=== PATIENT | male | born 1980 | race Caucasian/White ===

== ENCOUNTER → 2017-10-31 12:46 | Outpatient (CLI) | payer OTHER, SELFPAY ==
--- NOTE | 2017-10-31 12:55 | XR_ITS ---
XR ribs LT min 3V w CXR1V HISTORY: ITS.REASON: CHEST WALL PAIN ORDERING PHYSICIAN: Mendy Strange PATIENT AGE: 37 years FINDINGS: There is a mildly displaced fracture involving the age aspect of the left sixth rib. No other fractures apparent. No evidence of pneumothorax. IMPRESSION: Mildly displaced fracture involves injury aspect of the left sixth rib
--- NOTE | 2017-10-31 12:55 | XR_ITS ---
XR chest 2V HISTORY: ITS.REASON: CHEST WALL PAIN ORDERING PHYSICIAN: Mendy Strange PATIENT AGE: 37 years COMPARISON: FINDINGS: The cardiomediastinal silhouette and pulmonary vascularity are within normal limits. The lungs are clear without infiltrates, suspicious nodules, or pleural effusions. There is a minimally displaced fracture involving the anterior aspect of left sixth rib. IMPRESSION: Left 6 rib fracture otherwise negative chest.
== END ==
PROVIDERS: PCP Family Medicine; Visit Provider Nurse Practitioner Family
DX: R07.89 Other chest pain (principal)
CPT/HCPCS: 71046; 71101

== ENCOUNTER → 2017-11-25 10:17 | Outpatient (CLI) | payer OTHER, SELFPAY ==
--- NOTE | 2017-11-25 10:22 | XR_ITS ---
XR ribs LT min 3V w CXR1V HISTORY: Rib pain, follow-up fracture anterior ribs ITS.REASON: HEALING OF LEFT RIB FX ORDERING PHYSICIAN: MADELINE Brooks PATIENT AGE: 37 years Comparison: 10/31/2017 FINDINGS: A frontal view of the chest shows no acute finding. Multiple views of the Left ribs were obtained. Previously noted left sixth rib fracture is once again identified with some callus formation at fracture site. Fracture is nondisplaced. IMPRESSION: Healing left sixth rib fracture
== END ==
PROVIDERS: PCP Family Medicine; Visit Provider Physician Assistant
DX: S22.32XD Fracture of one rib, left side, subsequent encounter for fracture with routine healing (principal)
CPT/HCPCS: 71101

== ENCOUNTER → 2017-12-09 10:03 | Outpatient (CLI) | payer OTHER, SELFPAY ==
--- NOTE | 2017-12-09 10:12 | XR_ITS ---
XR ribs LT min 3V w CXR1V HISTORY: Follow-up rib fractures ITS.REASON: HEALING OF LEFT RIB FX ORDERING PHYSICIAN: MADELINE Brooks PATIENT AGE: 37 years Comparison: 10/31/2017 FINDINGS: Frontal view of the chest shows no acute finding. There is no evidence of pneumothorax.. Previously noted left sixth rib fractures less apparent consistent with healing. No new fractures are evident. IMPRESSION: Healing left sixth rib fracture
== END ==
PROVIDERS: PCP Nurse Practitioner; Visit Provider Physician Assistant
DX: S22.32XD Fracture of one rib, left side, subsequent encounter for fracture with routine healing (principal)
CPT/HCPCS: 71101

== ENCOUNTER → 2019-03-07 06:22 | Outpatient (CLI) | payer OTHER, SELFPAY ==
--- NOTE | 2019-03-07 | CA_ITS ---
APPROVED REPORT Exam: Exercise Treadmill Technologist: Mariela Ruiz, Ht: 5 ft 7 in Wt: 175 lbs BSA: 1.91 m2 HR: 56 bpm BP: 120/74 mmHg Rhythm: sinus bradycardia Indications: Chest pain Medical History Medications: Omeprazole,,,,, Celexa,,,,, ClonAZapam,,,,, Allergies: No known drug allergies Cardiac Risk Factors: Smoking Stress Test Details Test: Scotty HR Resting HR: 66 bpm Max Heart Rate (APMHR): 180 bpm Max HR Achieved: 160 bpm Target HR (85% APMHR): 153 bpm % of APMHR: 88 Recovery HR: 90 bpm BP Resting BP: 120/74 mmHg Max BP: 190/90 mmHg Recovery BP: 136.0/86.0 mmHg BP response to stress: Normal blood pressure response to stress. ECG Clinical Reason for Termination: Dyspnea and leg fatigue Exercise duration: 11:00 min Highest Stage Achieved: Exercise capacity: 12.8 METs Stress ECG Conclusion Max HR - 160: Max B/P - 190/90: Mets - 12.8 : % of PM -89%. Symptoms - No chest pain. occasional PVC Normal ST response to exercise. Normal GXT Myoview images reported separately. Test Summary REST . . . . . . . Sitting REST . . . . . . . Standing REST 17:33 0.0 0.0 66 . 120/ 74 . . Stage 1 01:00 10.0 1.7 86 . . . . Stage 1 02:00 10.0 1.7 91 . . . . Stage 1 03:00 10.0 1.7 96 . 120/ 80 . . Stage 2 01:00 12.0 2.5 99 . . . . Stage 2 02:00 12.0 2.5 104 . . . . Stage 2 03:00 12.0 2.5 108 . 144/ 85 . . Stage 3 01:00 14.0 3.4 115 . . . . Stage 3 02:00 14.0 3.4 121 . . . . Stage 3 03:00 14.0 3.4 125 . 152/ 84 . . Stage 4 01:00 16.0 4.2 151 . . . . Stage 4 . . . . . . . Myoview Injected Stage 4 02:00 16.0 4.2 160 . . . Stop exercise at 11:00 RECOVERY 01:00 0.0 0.0 128 . 190/ 90 . . RECOVERY 02:00 0.0 0.0 106 . 190/ 90 . . RECOVERY 03:00 0.0 0.0 96 . 173/ 86 . . RECOVERY 04:00 0.0 0.0 89 . 173/ 86 . . RECOVERY 05:00 0.0 0.0 91 . 136/ 86 . . RECOVERY 05:23 0.0 0.0 86 . 136/ 86 . . Electronically signed by : Fahad Townsend, 03/08/2019 13:02:59
--- NOTE | 2019-03-07 06:26 | NM_ITS ---
APPROVED REPORT Exam: Nuclear Stress Test Indication: Chest pain, Tobacco use Patient Location: Outpatient Stress Tech: Mariela Ruiz ID Tech:Nina Ace, SHAQUILLET, RT (R)(N) Ht: 5 ft 7 in Wt: 175 lbs BSA: 1.91 m2 HR: 56 bpm BP: 120/74 mmHg BMI: 27.4 History: Chest pain, Tobacco use Procedure: Patient exercised on Scotty protocol 11 minutes and sec, resting heart rate 56 bpm, resting blood pressure 120/74 mmHg, with exercise maximum heart rate achived was 160 bpm which is 89 % of the maximum predicted heart rate and blood pressure was 190/90. bpm. Test was stopped due to max effort. Patient denied any complaint of chest pain. Patient has Good exercise capacity, achieved 12.8 METs of workload on treadmill, the blood pressure response to exercise was Adequate.. Electrocardiogram Resting electric cardiogram showed sinus rhythm, with exercise less than 1.[address] segment depression noted from the baseline EKG. The EKG portion of the exercise Myoview is negative for ischemia. Cardiac Stress and Resting SPECT Images: Cardiac Stress and Resting SPECT images were obtained using technetium 99m Myoview 32 mCi stress and 10 mCi at rest. Gated SPECT with analysis of segmental wall motion and calculation of the ejection fraction also done. Cardiac stress and resting SPECT images show uniform myocardial activity without segmental perfusion abnormality, computer derived ejection fraction is 64% with no regional wall motion abnormality, right ventricle is normal size and contractility. Conclusion: 1. The EKG portion of the exercise Myoview is negative for ischemia, she has good exercise capacity achieved 12.8 mets of workload on treadmill, the blood pressure response to exercise was adequate. 2. No scintigraphic evidence of reversible ischemia seen at this level of exercise, computer derived ejection fraction is 64% with no regional wall motion abnormality, right ventricle is normal size and contractility. 3. Normal exercise Myoview study. Electronically signed by : John Ash, 03/15/2019 16:54:39
--- NOTE | 2019-03-07 07:04 | HMH.ITSHM ---
Current Home Medications as stated by this patient Giovanni Muniz or b2b sales representative. []CELEXA CLONAZAPAM OMEPRAZOLE
== END ==
PROVIDERS: PCP Family Medicine; Visit Provider Family Medicine
DX: R07.89 Other chest pain (principal)
CPT/HCPCS: 78452; 93017; A9502

== ENCOUNTER → 2020-10-03 13:00 | Outpatient (CLI) | payer OTHER, SELFPAY ==
--- NOTE | 2020-10-03 13:08 | MR_ITS ---
PROCEDURE: MR HEAD/BRAIN WO CON CLINICAL INDICATION: eval for MBA [employer] abnormalities Pt states hx of migraines with no injury or trauma. COMPARISON: No exams were available for comparison TECHNIQUE: Routine multiplanar multi echo sequences are performed without gadolinium enhancement. FINDINGS: No midline shift, mass effect, intracranial hemorrhage, hydrocephalus, or acute infarction. The cerebellopontine angle, cerebellum, and brainstem have an unremarkable appearance. There are a few sparse T2 white matter hyperintensities noted which are nonspecific. Coarsened callosum, and craniocervical junction have an unremarkable appearance. Posterior to the right optic canal, there is an area of signal void measuring 5 mm. This is best depicted on the axial T1 and T2 weighted images. This could represent a small aneurysm or an extension of the sphenoid sinus. MR angiography suggested for further evaluation. No mastoid effusion or sinus air-fluid level. IMPRESSION: 1. 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 MRA suggested for further evaluation. 2. Non-specific minimal T2 white matter hyperintensities. Small ischemic gliotic foci, migraine headache, or demyelinating process is included in the differential diagnosis Dictated by: Yohannes Candelario MD 10/05/2020 10:11 Yohannes Candelario MD in [facility] 10/05/2020 10:11
== END ==
LOC: RAD 13:02
PROVIDERS: PCP Physician Assistant; Visit Provider Specialist
DX: R51.9 Headache, unspecified (principal); G89.29 Other chronic pain
CPT/HCPCS: 70551

== ENCOUNTER → 2020-10-08 09:37 | Outpatient (CLI) | payer OTHER, SELFPAY ==
--- NOTE | 2020-10-08 09:43 | MR_ITS ---
PROCEDURE: MR ANGIO HEAD WO CON CLINICAL INDICATION: abnormal MRI, possible aneurysm COMPARISON: MR MR HEAD/BRAIN WO CON from 10/03/2020 TECHNIQUE: Routine multiplanar multi echo sequences are performed without gadolinium enhancement. FINDINGS: Bilateral internal carotid arteries demonstrate normal flow related signal without evidence of aneurysm. The internal carotid arteries demonstrate normal anterior and mediastinal [place] arteries. The focal flow void noted in the region of the right ophthalmic artery on the prior MRI demonstrates no evidence of aneurysm. The origin of the right ophthalmic artery appears unremarkable. Bilateral middle cerebral arteries demonstrate type trifurcation without evidence of focal stenosis or occlusion. The intracranial internal carotid arteries are unremarkable. The basilar trunk the minutes as paired superior cerebellar and posterior cerebral arteries. No evidence of focal stenosis or aneurysm. The visualized venous sinuses are unremarkable. IMPRESSION: No evidence of aneurysm or stenosis. Unremarkable MR angiogram of the head. Dictated by: Halima Mcguire 10/08/2020 14:41 Halima Mcguire in [facility] 10/08/2020 14:41
== END ==
LOC: RAD 09:38
PROVIDERS: PCP Physician Assistant; Visit Provider Specialist
DX: R51.9 Headache, unspecified (principal); R93.0 Abnormal findings on diagnostic imaging of skull and head, not elsewhere classified
CPT/HCPCS: 70544

== ENCOUNTER → 2020-10-22 14:32 | Outpatient (CLI) | payer OTHER, SELFPAY ==
--- NOTE | 2020-10-22 14:37 | CT_ITS ---
PROCEDURE: CT ABDOMEN PELVIS WO CON CLINICAL INDICATION: H/O URINARY CALCULI COMPARISON: No exams were available for comparison TECHNIQUE: Axial images obtained with sagittal and coronal reformats. All CT scans at the facility use one or more dose reduction, viz: automated exposure control, ma/kV adjustment per patient size (including targeted exams where dose is matched to indication, i.e. head), or iterative reconstruction technique. FINDINGS: LOWER THORAX: No acute finding ABDOMEN & PELVIS: A 6 mm hypodensity is present in the left hepatic lobe possibly due to small hepatic cyst. The spleen, adrenal glands, pancreas, and gallbladder have an unremarkable appearance. There is moderate right hydronephrosis and hydroureter secondary to a 9 x 5 mm stone in the distal right ureter 1 cm proximal to the ureterovesical junction. There is at least 1 other small stone at this region proximal to the larger stone. The smaller stone measures approximately 4 mm. There is also a small 3 mm stone at the junction of the mid distal right ureter 5 cm proximal to the area of obstruction. Punctate calculi are present in the right kidney in the upper and lower pole. There is a 5 mm stone in the upper pole of the left kidney and smaller stones in the lower pole of the left kidney. No evidence of appendicitis. No intestinal obstruction or free air. There is mild thickening of the urinary bladder wall nonspecific. No acute bony findings. Scattered small nodes are present in the right lower quadrant and mesenteries. IMPRESSION: 1. Moderate right hydronephrosis and hydroureter secondary to a 9 x 5 mm stone in the distal right ureter with other smaller stones proximal to that stone in the ureter. 2. Bilateral nephrolithiasis. 3. Other nonacute findings as described above Dictated by: Yohannes Candelario MD 10/22/2020 15:21 Yohannes Candelario MD in [facility] 10/22/2020 15:21
== END ==
LOC: RAD 14:33
PROVIDERS: PCP Family Medicine; Visit Provider Family Medicine
DX: R10.9 Unspecified abdominal pain (principal); Z87.442 Personal history of urinary calculi
CPT/HCPCS: 74176

== ENCOUNTER → 2020-10-27 15:52 | Outpatient (CLI) | payer OTHER, SELFPAY ==
--- NOTE | 2020-10-27 15:54 | XR_ITS ---
PROCEDURE: XR KUB CLINICAL INDICATION: kidney stone COMPARISON: No exams were available for comparison FINDINGS: Numerous left-sided renal stones are present measuring up to 5 mm in the upper pole on the left. There are few punctate right renal calculi. In the right renal pelvis there is a small stone or cluster of stones which measures approximately 10 by 5 mm. Just proximal to this is a 3 mm stone. Mild amount of retained colonic feces. Bowel gas pattern is nonspecific. IMPRESSION: 1. Bilateral renal calculi. 2. Right ureterolithiasis Dictated by: Yohannes Candelario MD 10/27/2020 16:43 Yohannes Candelario MD in [facility] 10/27/2020 16:43
== END ==
PROVIDERS: PCP Family Medicine; Visit Provider Urology
DX: N20.0 Calculus of kidney (principal)
CPT/HCPCS: 74018

== ENCOUNTER → 2020-11-06 13:41 | Outpatient (CLI) | payer OTHER, SELFPAY ==
--- NOTE | 2020-11-06 13:43 | XR_ITS ---
PROCEDURE: XR KUB CLINICAL INDICATION: ureteral stone COMPARISON: CT CT ABDOMEN PELVIS WO CON from 10/22/2020 FINDINGS: There is bilateral nephrolithiasis with stones measuring up to 5 mm in the upper pole on the left and 3 mm in the lower pole on the right. There are 3 calcific densities in the medial right aspect of the pelvis inferiorly the largest at mm suggesting distal ureteral calculi. IMPRESSION: Bilateral nephrolithiasis with right distal ureteral calculi. Dictated by: Yohannes Candelario MD 11/06/2020 17:57 Yohannes Candelario MD in [facility] 11/06/2020 17:57
== END ==
PROVIDERS: PCP Family Medicine; Visit Provider Urology
DX: N20.1 Calculus of ureter (principal)
CPT/HCPCS: 74018

== ENCOUNTER 2020-11-14 10:48 | Day surgery (SDC) | payer OTHER, SELFPAY ==
[2020-11-13 11:41] VITALS: BMI 27.3
[2020-11-14] VITALS (9 sets, daily range): BP systolic 111–143; BP diastolic 78–89; PULSE 66–97; RESP 18–20; TEMP 36.1–36.7; O2SAT 93–99
--- NOTE | 2020-11-14 14:34 | XR_ITS ---
PROCEDURE: XR KUB CLINICAL INDICATION: URETEROSCOPY COMPARISON: No exams were available for comparison FINDINGS: Fluoroscopy time: 45 seconds Right ureteral stent was placed under fluoroscopic guidance with the proximal aspect curled in the right upper quadrant in the distal aspect curled in the lower pelvic region. IMPRESSION: Status post right ureteroscopy with ureteral stent placement with fluoro cyst in its Dictated by: Yohannes Candelario MD 11/14/2020 17:09 Yohannes Candelario MD in [facility] 11/14/2020 17:09
--- NOTE | 2020-11-14 14:39 | HMH.ANESCL ---
[facility] Anesthesia Checklist - Patient Identification Patient Identification: Arm Band - Structural Data Admitted From: Home Planned Operative Procedure/s: Right ureteroscopy Consent for Planned Operative Procedure(s) Verified: Yes Verified Documents: Surgical Consent, History and Physical - NPO Status Verified Time NPO: 00:00 - Additional verifications Anesthesia Reactions: No Hx Blood Transfusions: No Blood Transfusion Reaction: No - Airway Assessment C-Spine Mobility Assessed: Yes TMJ Mobility Assessed: Yes Dentition: Good Dentition - Neurological Assessment Level of Consciousness: Awake, Alert - Anesthesia Plan Anesthesia Risk discussed: Yes Anesthesia Plan: Verified ASA Class: II Anesthesia Type: General [facility] History Medical History: Reports:: Anxiety, Hypertension, Kidney Stones, Migraine Denies:: Cancer, Diabetes Mellitus Type 1, Diabetes Mellitus Type 2, Internal Pacemaker, MRSA, Seizures *Have you ever received a pneumonia vaccine?: No *Have you received a flu vaccine this season?: No Other Medical History: Denies: Blood Transfusion Reaction Anesthesia experience/problems:: None Other Surgeries: Yes: No Previous Surgery. No: Pacemaker Amputation: No Fractures: Yes - *Social History Last grade of school completed: High school graduate Smoking Status: Never smoker Tobacco Type: cigarettes # Packs/Day (cigarettes): 1 Alcohol Intake: current Alcohol Intake Frequency:: a few times a month Substance Use Type: denies use *Occupational Status:: employed Housing: house Household Members: spouse, family *Travel in the last 8 weeks: None - Psychiatric History Pschychiatric History:: Reports:: Anxiety Family Hx:: Hypertension, Stroke, Diabetes
--- NOTE | 2020-11-14 14:40 | P.PN_ITS ---
[facility] Anesthesia Record Part I Intake, IV Amount: 800 Estimated blood loss (mL): 1 Urine output (mL): 0 Blood Products used (#): none Blood Pressure: 124/83 SaO2: 93 Pulse Rate: 97 Respiratory Rate: 20 Temperature: 97.0 F Patient is:: Awake, Drowsy Stable to PACU at:: 14:43
--- NOTE | 2020-11-14 15:26 | HMH.OPNOTE ---
Date of procedure: 11/14/20 Pre-op Diagnosis:: Right ureteral calculus Post-op Diagnosis:: Right ureteral calculi Procedure performed:: Cystoscopy with stone extraction, right ureteroscopy with stone extraction, right stent placement Surgeon:: Chepe Valladares MD OBSTETRICAL TECH:: Other (ketty evangelista) Anesthesia: LMA Estimated blood loss (mL): 0 Clinical Note:: 40-year-old white male with history of ureteral calculi. We have been following for several weeks without passage. He wished to proceed with stone management. Operative findings:: Patient with a large stone at the right ureteral orifice on cystoscopic exam. This was removed with graspers and 3 other stones were removed as well. Right stent placed Operative note:: Patient taken to the operating room after informed consent was obtained. Was placed on the operating table in the supine position and general anesthesia administered. He was then placed into the dorsolithotomy position and prepped draped in the standard surgical fashion. Sequential compression devices and preoperative antibiotics administered. 22 Robin passed into the urethral meatus and into the bladder without difficulty. The bladder was examined in a systematic fashion. A stone was at the right ureteral orifice and a rigid grasper was attached to the cystoscope and the stone removed. The cystoscope was replaced and another stone was noted at the right ureteral orifice and a 2.4 [place] nitinol stone basket passed into the right ureteral orifice and the stone removed without difficulty. We then removed the cystoscope and passed our semirigid ureteroscope into the right ureter after guidewire had been placed. 2 other stones were noted in the distal ureter and these were removed with the stone basket. Then removed the ureteroscope and passed the cystoscope back and there was minimal urine output from the right ureteral orifice so a stent was placed over the guidewire. A 4.8 x 26 [place] stent placed with a good curl noted proximally and distally after the wire was removed. String was left on for later removal. Patient tolerated procedure well no complications. Urojet was placed into the urethra for comfort measures. Condition: stable Disposition: PACU Specimens:: Ureteral stones Complications:: None
--- NOTE | 2020-11-17 11:23 | P.PN_ITS ---
[facility] Anesthesia Record Part II Discharge Time: 15:03 Destination: [facility] PACU nurse assessment reviewed?: Yes Patient Condition:: Good Anesthesia Complications:: None Swallowing reflex intact?: Yes Cyanosis?: No Blood Pressure: 133/78 Pulse Rate: 83 Temperature: 98.1 F Mental Status: Alert & Oriented Pain level:: 0 Nausea and/or vomitting:: None Intake, IV Amount: 800
[2020-11-17 11:24] VITALS: BP 133/78; PULSE 83; TEMP 36.7
[2020-12-06 16:50] LABS: Specimen Type RIGHT KIDNEY
[2020-12-06 16:55] LABS: Ca oxalate dihydrate 40; Calcium phosphate 10
== END 2020-11-14 15:35 | disposition home or self-care (01) ==
LOC: OR 10:49
PROVIDERS: PCP Family Medicine; Visit Provider Urology
PROC: (CPT 52352; principal; 2020-11-14 12:30)
DX: N20.1 Calculus of ureter (principal); Z87.442 Personal history of urinary calculi; F41.9 Anxiety disorder, unspecified; I10 Essential (primary) hypertension; G43.909 Migraine, unspecified, not intractable, without status migrainosus; Z82.49 Family history of ischemic heart disease and other diseases of the circulatory system; Z82.3 Family history of stroke; Z83.3 Family history of diabetes mellitus
CPT/HCPCS: 52352; 52332; 74018; 76000; 82370; 96374; C2617; J2405

== ENCOUNTER 2021-02-08 11:03 | Emergency (ER) | payer OTHER, SELFPAY ==
--- NOTE | 2021-02-08 11:03 | ECG_ITS ---
APPROVED REPORT Exam: Resting ECG HR:88 bpm ECG Measurements Heart Rate 88 AXES DC 132 P 25 QRSd 78 QRS -4 QT 366 T 2 QTc 442 Conclusion Normal sinus rhythm Moderate voltage criteria for LVH, may be normal variant Borderline ECG Electronically signed by : Micky Joseph, 02/08/2021 20:39:36
[2021-02-08 11:06] VITALS: BP 118/82; PULSE 86; RESP 18; TEMP 38.1; O2SAT 96; BMI 25.8
--- NOTE | 2021-02-08 11:08 | CT_ITS ---
PROCEDURE INFORMATION: Exam: CTA Chest With Contrast Exam date and time: 02/08/2021 11:08 AM Age: 40 years old Clinical indication: Pain and condition or disease; Other: Entire chest hurts; Patient HX: Chest pain, covid positive for 9 days. ; Additional info: Chest pain covid + TECHNIQUE: Imaging protocol: Computed tomographic angiography of the chest with contrast. 3D rendering (Not supervised by radiologist): MIP and/or 3D reconstructed images were created by the technologist. Radiation optimization: All CT scans at this facility use at least one of these dose optimization techniques: automated exposure control; mA and/or kV adjustment per patient size (includes targeted exams where dose is matched to clinical indication); or iterative reconstruction. Contrast material: ISOVUE 370; Contrast volume: 70 ml; Contrast route: INTRAVENOUS (IV); COMPARISON: CR Chest 12/05/2018 2:19 PM FINDINGS: Pulmonary arteries: Adequate pulmonary vascular opacification is present. Evaluation of the pulmonary arterial vessels demonstrates no CT evidence of pulmonary embolus. Aorta: Unremarkable. No aortic aneurysm. No aortic dissection. Lungs: Moderate patchy bilateral ground-glass opacities compatible with Covid-19 pneumonitis. Pleural spaces: Unremarkable. No pneumothorax. No pleural effusion. Heart: Unremarkable. No cardiomegaly. No pericardial effusion. Lymph nodes: Unremarkable. No enlarged lymph nodes. Spleen: The spleen is mildly prominent. Bones/joints: Unremarkable. No acute fracture. Soft tissues: Unremarkable. IMPRESSION: 1. Adequate pulmonary vascular opacification is present. Evaluation of the pulmonary arterial vessels demonstrates no CT evidence of pulmonary embolus. 2. Moderate patchy bilateral ground-glass opacities compatible with Covid-19 pneumonitis.
--- NOTE | 2021-02-08 11:08 | XR_ITS ---
PROCEDURE INFORMATION: Exam: XR Chest Exam date and time: 02/08/2021 11:08 AM Age: 40 years old Clinical indication: Patient HX: Chest pain, covid positive for [address] chest also done for pe at this time. ; Additional info: Chest pain, covid+ TECHNIQUE: Imaging protocol: XR of the chest. Views: 1 view. COMPARISON: CT ANGIO CHEST PE PROTOCOL 02/08/2021 11:48 AM FINDINGS: Lungs: Patchy bilateral ground-glass opacities are better seen on recent CT. Pleural spaces: Unremarkable. No pleural effusion. No pneumothorax. Heart/Mediastinum: Unremarkable. No cardiomegaly. Bones/joints: Unremarkable. IMPRESSION: Patchy bilateral ground-glass opacities are better seen on recent CT.
--- NOTE | 2021-02-08 11:21 | HMH.EDCP ---
ED Disposition Clinical Impression: Atypical chest pain, COVID-19 Disposition: Home, Self-Care Condition on Discharge: Good Additional Instructions: Take tylenol as needed for pain or fever. Return to ED if new symptoms. Continue quarantine as directed. Follow up with PCP in two days. Prescriptions: Azithromycin [Zithromax 1gm packet] 1 gm PO ONCE #1 packet Transmission Status: Pending to [id number] Referrals: Beka Urrutia MD [Primary Care Provider] - - Critical Care Critical Care Time: No Attestation: On , the high probability of a clinically significant, sudden or life threatening deterioration of the following system(s) required my full and direct attention, intervention and personal management. The time I documented below is in addition to time spent performing reported procedures but includes the following listed in this critical care notation. Medical Decision Making - Medical Records MR Comment: EEG of the patient was completely normal. Chest x-ray was negative. Troponin was negative. it was repeated after two hours and it was negative. CTA was negative. CXR was clear. - Satish Inquiry Pt receiving controlled substance: No Satish was queried for this patient: No Vital Signs: 02/08/21 11:06 02/08/21 11:30 02/08/21 12:17 Temperature 100.5 F H Temperature Source Oral Pulse Rate 87 Pulse Rate [Radial] 86 Respiratory Rate 18 18 Blood Pressure 124/81 116/81 Blood Pressure [Right Arm] 118/82 Blood Pressure Mean 91 89 Blood Pressure Mean [Right Arm] 94 Blood Pressure Position [Right Arm] Sitting 02 Sat by Pulse Oximetry 96 96 Oxygen Delivery Method Room Air - Lab Data Lab Results 02/08/21 11:15: WBC 3.5 L, RBC 4.80, Hgb 15.0, Hct 43.0, MCV 89.7, MCH 31.3 H, MCHC 34.9, RDW 13.3, Plt Count 191, MPV 8.3, Neut % (Auto) 60.8, Lymph % (Auto) 31.2, [place] % (Auto) 7.4, Eos % (Auto) 0.1, Baso % (Auto) 0.6, Neut # (Auto) 2.1, Lymph # (Auto) 1.1, [place] # (Auto) 0.3, Eos # (Auto) 0.0, Baso # (Auto) 0.0 02/08/21 11:15: Sodium 139, Potassium 3.7, Chloride 100, Carbon Dioxide 29, Anion Gap 13.7, BUN 11, Creatinine 0.80, Estimated Creat Clear 127, Estimated GFR 106, Est GFR ( Amer) 128, Glucose 121 H, Calcium 8.5, Total Bilirubin 0.6, AST 40, ALT 41, Alkaline Phosphatase 80, Troponin I < 0.01, Total Protein 7.1, Albumin 4.2, Globulin 2.9, Albumin/Globulin Ratio 1.4 02/08/21 11:15: D-Dimer 0.57 H 02/08/21 13:10: Troponin I < 0.01 Result diagrams: 02/08/21 11:15 02/08/21 11:15 Orders (Tests/Meds): ED MEDICATIONS Discontinued Medications Generic Name Dose Route Start Last Admin Trade Name Freq PRN Reason Stop Dose Admin Aspirin 325 mg 02/08/21 11:30 02/08/21 12:14 Aspirin 325mg Tablet PO 02/08/21 11:31 Not Given ONCE ONE Aspirin 324 mg 02/08/21 12:13 02/08/21 12:14 Aspirin 81mg Chewable Tablet PO 02/08/21 12:14 324 mg ONCE ONE Administration Iopamidol 70 ml 02/08/21 11:58 02/08/21 12:00 Iopamidol-370 (76%);100ml Bottle IV 02/08/21 11:59 70 ml ONCE ONE Administration Sodium Chloride 50 ml 02/08/21 11:58 02/08/21 12:00 0.9 % Sodium Chloride 50 Ml Vial IV 02/08/21 11:59 50 ml ONCE ONE Administration Sodium Chloride 10 ml 02/08/21 11:58 02/08/21 12:00 Sodium Chloride 0.9% 10ml Syr (Rad Only) IV 02/08/21 11:59 10 ml ONCE ONE Administration ORDERS Category Date Time Status Troponin I Q3H Lab 02/08/21 17:15 Ordered Chest Pain HPI - General Chief Complaint: Chest Pain Stated Complaint: chest pain Time Seen by Provider: 02/08/21 11:21 Source of Information: Patient Limitations: No Limitations - History of Present Illness HPI narrative: 40 year old Male who was diagnosed with COVID-19 9 days ago. Complains of sternal chest pain described as achy and mild. With no radiation or nausea or vomiting or diaphoresis. Patient does not have any hypertension or history of coronary disease
[2021-02-08 11:27] LABS: Basophils % 0.6 % (0.1-2.0); Eosinophils % 0.1 % (0.1-12.0); Lymphocytes # 1.1 K/mm3 (0.7-4.5); Lymphocytes % 31.2 % (10-50); Mean Corpuscular HGB Conc 34.9 g/dL (31.8-35.4); Mean Corpuscular Hemoglobin 31.3 pg (27.0-31.2); Mean Corpuscular Volume 89.7 fl (80-94); Mean Platelet Volume 8.3 fl (7.4-10.4); Monocytes # 0.3 K/mm3 (0.1-1.0); Monocytes % 7.4 % (1.7-9.3); Neutrophils # 2.1 K/mm3 (1.8-7.8); Neutrophils % 60.8 % (37.0-80.0); Platelet Count 191 K/mm3 (142-424); Red Cell Distribution Width 13.3 % (11.5-17.5); White Blood Count 3.5 K/mm3 (4.8-10.8)
[2021-02-08 11:30] VITALS: BP 124/81
[2021-02-08 11:31] LABS: Alanine Aminotransferase 41 U/L (12-78); Albumin Level 4.2 g/dl (3.5-5.0); Albumin/Globulin Ratio 1.4 (1.1-1.8); Alkaline Phosphatase 80 U/L (38-126); Anion Gap 13.7 mEq/L (5-15); Aspartate Amino Transferase 40 U/L (17-59); Bilirubin,Total 0.6 mg/dl (0.2-1.3); Blood Urea Nitrogen 11 mg/dl (9-20); Calcium 8.5 mg/dl (8.4-10.2); Carbon Dioxide 29 mmol/L (22.0-30.0); Chloride 100 mmol/L (98-107); Creatinine Clearance Estimated 127 mL/min (50-200); Estimated Glomerular Filt Rate 106 ml/min (>60); GFR (African American) 128 ML/MIN (>60); Globulin 2.9 g/dL (1.3-3.2); Glucose 121 mg/dl (74-100); Potassium 3.7 mmoL/L (3.5-5.1); Sodium 139 mmol/L (136-145); Total Protein,Serum 7.1 g/dl (6.3-8.2)
[2021-02-08 11:36] LABS: D-Dimer 0.57 ug/mL (0.0-0.5)
[2021-02-08 11:44] LABS: Troponin I < 0.01 ng/ml (0.00-0.034)
[2021-02-08 12:17] VITALS: BP 116/81; PULSE 87; RESP 18; O2SAT 96
[2021-02-08 13:42] LABS: Troponin I < 0.01 ng/ml (0.00-0.034)
[2021-02-08 14:18] VITALS: BP 119/82; PULSE 77; RESP 18; TEMP 36.9; O2SAT 97
== END 2021-02-08 14:20 | disposition home or self-care (01) ==
PROVIDERS: Emergency Provider Internal Medicine; PCP Family Medicine
DX: R07.9 Chest pain, unspecified (principal); U07.1 COVID-19; I10 Essential (primary) hypertension; F41.9 Anxiety disorder, unspecified; Z87.442 Personal history of urinary calculi
CPT/HCPCS: 71045; 71275; 80053; 84484; 85025; 85378; 93005; 99283; Q9967

== ENCOUNTER 2021-02-15 10:18 | Emergency (ER) | payer OTHER, SELFPAY ==
[2021-02-15 11:05] VITALS: BP 109/74; PULSE 73; RESP 19; TEMP 36.8; O2SAT 98; BMI 26.3
--- NOTE | 2021-02-15 11:41 | HMH.EDUTC ---
[facility] [place] Clinical Impression: COVID-19 Disposition: Home, Self-Care Condition on Discharge: Good Instructions: DI for COVID-19 (Suspected or Confirmed ), COVID-19: Protecting Yourself When You're at High Risk, Preventing the Spread of Coronavirus Discharge Instructions Additional Instructions: No sign of a bacterial infection. Likely viral. Viruses can take 7-14 days to run their course. Nasal saline and bulb syringe or nose Leann to remove nasal drainage to help with nasal congestion. Hard to eat, drink, sleep with nasal congestion so important to keep this cleaned out. Monitor temp. Tylenol or Motrin as needed for pain or fever Encourage fluids, water, Gatorade, Powerade, Pedialyte if /toddler/child Warm salt water gargles Warm fluids Sore throat lozenges Sleep elevated Humidifier/vaporizer Follow-up immediately for new or worsening symptoms or no noticeable improvement over the next 48-72 hours. covid swab was sent to lab, call later today or tomorrow for results. self isolate until test results are known to be negative Referrals: Beka Urrutia MD [Primary Care Provider] - Time of Disposition: 11:43 Medical Decision Making - Satish Inquiry Pt receiving controlled substance: No Vital Signs: 02/15/21 11:05 Temperature 98.3 F Temperature Source Oral Pulse Rate [Right Brachial] 73 Respiratory Rate 19 Blood Pressure [Right Arm] 109/74 L Blood Pressure Mean [Right Arm] 85 Blood Pressure Source [Right Arm] Automatic Cuff Blood Pressure Position [Right Arm] Sitting 02 Sat by Pulse Oximetry 98 Oxygen Delivery Method Room Air Orders (Tests/Meds): ORDERS Category Date Time Status Covid-19 Nasal PCR ([facility]) Routine Lab 02/15/21 11:13 Ordered [facility] [place] HPI - General Chief complaint: [facility] Stated complaint: covid test Time Seen by Provider: 02/15/21 11:41 Mode of Arrival: Ambulatory Source of Information: Patient Limitations: No Limitations Description of Symptoms (Recalled from Triage Doc. by RN): PATIENT TESTED POSITIVE ON 02/06, WANTS RE-TESTED HEENT Symptoms (Recalled from RN notes): No Resp Symptoms (Recalled from RN notes): No Skin Symptoms (Recalled from RN notes): No MS Symptoms (Recalled from RN notes): No Functional Status (Recalled from RN notes): WNL - History of Present Illness Provider Complaint: 40 yr old male presents for covid swab, pt was positive and now wants retested. - Related Data Home Medications Medication Instructions Recorded Confirmed clonazepam 0.5 mg tablet 0.5 mg PO BID tab 09/30/20 02/08/21 omeprazole 40 mg capsule,delayed 40 mg PO DAILY 09/30/20 02/08/21 release Previous Rx's Medication Instructions Recorded Azithromycin [Zithromax 1gm packet] 1 gm PO ONCE #1 packet 02/08/21 Allergies Allergy/AdvReac Type Severity Reaction Status Date / Time No Known Allergies Allergy Verified 11/17/20 13:52 - Worker's Comp Is this a Worker's Comp case?: No [facility] History - Hepatitis A Screen Drug use history?: No High risk sexual behaviors?: No History of sexually transmitted infection?: No Currently employed?: No Childcare worker?: No Do you have indoor plumbing?: Yes Do you have electricity?: Yes Attestation statement:: This patient has been screened for Hepatitis A risk factors. I have reviewed the patient's past medical history: Yes Medical History: Reports:: Anxiety, Hypertension, Kidney Stones, Migraine Denies:: Cancer, Diabetes Mellitus Type 1, Diabetes Mellitus Type 2, Internal Pacemaker, MRSA, Seizures Other Medical History: Denies: Blood Transfusion Reaction Other Surgeries: Yes: No Previous Surgery. No: Pacemaker Amputation: No Fractures: Yes Comment: rt hand fx with plate and screws,lt leg fx - Social History Smoking Status: Never smoker Tobacco Type: cigarettes # Packs/Day (cigarettes): 1 Alcohol Intake: current Alcohol Intake Frequency:: a few times a month Substance Use Type: de
[2021-02-15 11:50] VITALS: BP 109/74; PULSE 73; RESP 19; TEMP 36.8; O2SAT 98
--- NOTE | 2021-02-15 21:36 | PC.NURSE ---
PT NOTIFIED OF POSITIVE COVID TEST RESULTS
== END 2021-02-15 11:54 | disposition home or self-care (01) ==
PROVIDERS: Emergency Provider Nurse Practitioner Family; PCP Family Medicine
DX: U07.1 COVID-19 (principal); I10 Essential (primary) hypertension; F41.9 Anxiety disorder, unspecified
CPT/HCPCS: 99202; G0463; U0003

== ENCOUNTER 2021-07-12 13:57 | Emergency (ER) | payer OTHER, SELFPAY ==
[2021-07-12 14:00] VITALS: BP 130/95; PULSE 66; RESP 16; TEMP 36.4; O2SAT 97; BMI 26.6
--- NOTE | 2021-07-12 14:40 | HMH.EDGENADL ---
ED Disposition Clinical Impression: Influenza B, COVID-19 virus infection Headache Qualifiers: Headache type: unspecified Headache chronicity pattern: acute headache Intractability: not intractable Qualified Code(s): R51.9 - Headache, unspecified Disposition: Home, Self-Care Condition on Discharge: Good Instructions: DI for Headache Additional Instructions: Tamiflu for influenza. For influenza, CDC recommends isolation for 7 days or until symptoms resolve, whichever is longer. Rest, drink plenty of fluids. Tylenol or ibuprofen for fever and pain. COVID-19 Isolation: People with COVID-19 should isolate for 5 days. Then if they are asymptomatic (no symptoms) or their symptoms are resolving (without fever for 24 hours), follow that by 5 days of wearing a mask when around others to minimize the risk of infecting people you encounter. If you test positive for COVID-19 and never develop symptoms, day 0 is the day of your positive viral test (based on the date you were tested) and day 1 is the first full day after your positive test. If you develop symptoms after testing positive, your 5-day isolation period must start over. Day 0 is your first day of symptoms. Day 1 is the first full day after your symptoms developed. What to do: Monitor your symptoms. If you have an emergency warning sign (including trouble breathing), seek emergency medical care immediately. Stay in a separate room from other household members, if possible. Use a separate bathroom, if possible. Avoid contact with other members of the household and pets. Don?t share personal household items, like cups, towels, and utensils. Wear a mask when around other people if able. Prescriptions: Oseltamivir Phosphate [Tamiflu 75mg Capsule] 75 mg PO BID #10 cap Transmission Status: Pending to [facility] Referrals: Beka Urrutia MD [Primary Care Provider] - - Critical Care Critical Care Time: No Attestation: On 07/12/21, the high probability of a clinically significant, sudden or life threatening deterioration of the following system(s) required my full and direct attention, intervention and personal management. The time I documented below is in addition to time spent performing reported procedures but includes the following listed in this critical care notation. Medical Decision Making - Medical Records Medical records reviewed: Yes: I reviewed the patient's medical records. MR Comment: Seen by neurology in September of this year. Had an MRI of the brain and MRA of the brain. Results reviewed. - Satish Inquiry Pt receiving controlled substance: No Satish was queried for this patient: Yes Vital Signs: 07/12/21 14:00 07/12/21 15:45 Temperature 97.5 F L Temperature Source Oral Pulse Rate 109 H Pulse Rate [Right Radial] 66 Respiratory Rate 16 Blood Pressure 126/82 Blood Pressure [Right Arm] 130/95 H Blood Pressure Mean [Right Arm] 106 Blood Pressure Source [Right Arm] Automatic Cuff Blood Pressure Position [Right Arm] Sitting 02 Sat by Pulse Oximetry 97 100 Oxygen Delivery Method Room Air - Lab Data Lab Results 07/12/21 14:17: SARS-CoV-2 (PCR) Detected A, Influenza A Untype (PCR) Not detected, Influenza Type B (PCR) Detected A 07/12/21 15:30: WBC 13.0 H, RBC 4.70, Hgb 15.0, Hct 44.5, MCV 94.5 H, MCH 32.0 H, MCHC 33.8, RDW 12.9, Plt Count 298, MPV 8.5, Neut % (Auto) 83.1 H, Lymph % (Auto) 12.8, [place] % (Auto) 3.3, Eos % (Auto) 0.3, Baso % (Auto) 0.5, Neut # (Auto) 10.8 H, Lymph # (Auto) 1.7, [place] # (Auto) 0.4, Eos # (Auto) 0.0, Baso # (Auto) 0.1 07/12/21 15:30: Sodium 140, Potassium 4.0, Chloride 102, Carbon Dioxide 31 H, Anion Gap 11.0, BUN 13, Creatinine 0.80, Estimated Creat Clear 130, Estimated GFR 106, Est GFR ( Amer) 128, Glucose 102 H, Calcium 9.3, Total Bilirubin 0.4, AST 31, ALT 20, Alkaline Phosphatase 67, Total Protein 7.2, Albumin 4.4, Globulin 2.8, Albumin/Globulin Ratio 1.6 Resu
--- NOTE | 2021-07-12 14:51 | CT_ITS ---
PROCEDURE INFORMATION: Exam: CT Head Without Contrast Exam date and time: 07/12/2021 2:51 PM Age: 41 years old Clinical indication: Other: Headache; Additional info: Headache. Pending covid test TECHNIQUE: Imaging protocol: Computed tomography of the head without contrast. Radiation optimization: All CT scans at this facility use at least one of these dose optimization techniques: automated exposure control; mA and/or kV adjustment per patient size (includes targeted exams where dose is matched to clinical indication); or iterative reconstruction. COMPARISON: MR HEAD/BRAIN WO CON 10/03/2020 1:14 PM FINDINGS: Brain: Normal. No hemorrhage. Unremarkable white matter. No mass effect. Cerebral ventricles: No ventriculomegaly. Paranasal sinuses: Visualized sinuses are unremarkable. No fluid levels. Mastoid air cells: Visualized mastoid air cells are well aerated. Bones/joints: No acute fracture. Soft tissues: No acute changes IMPRESSION: No acute intracranial abnormality.
[2021-07-12 15:08] LABS: Influenza A, PCR Not Detected (NotDetected)
--- NOTE | 2021-07-12 15:10 | PC.NURSE ---
pt returned from rad.
[2021-07-12 15:36] LABS: Coronavirus 19, PCR Detected (NotDetected); Influenza B, PCR Detected (NotDetected)
[2021-07-12 15:45] VITALS: BP 126/82; PULSE 109; O2SAT 100
[2021-07-12 16:34] LABS: Basophils # 0.1 K/mm3 (0-0.2); Basophils % 0.5 % (0.1-2.0); Eosinophils % 0.3 % (0.1-12.0); Hematocrit 44.5 % (42.0-52.0); Lymphocytes # 1.7 K/mm3 (0.7-4.5); Lymphocytes % 12.8 % (10-50); Mean Corpuscular HGB Conc 33.8 g/dL (31.8-35.4); Mean Corpuscular Volume 94.5 fl (80-94); Mean Platelet Volume 8.5 fl (7.4-10.4); Monocytes # 0.4 K/mm3 (0.1-1.0); Monocytes % 3.3 % (1.7-9.3); Neutrophils # 10.8 K/mm3 (1.8-7.8); Neutrophils % 83.1 % (37.0-80.0); Platelet Count 298 K/mm3 (142-424); Red Cell Distribution Width 12.9 % (11.5-17.5)
[2021-07-12 16:35] LABS: Chloride 102 mmol/L (98-107)
[2021-07-12 16:36] LABS: Sodium 140 mmol/L (136-145)
[2021-07-12 16:38] LABS: Alanine Aminotransferase 20 U/L (12-78); Alkaline Phosphatase 67 U/L (38-126); Aspartate Amino Transferase 31 U/L (17-59); Bilirubin,Total 0.4 mg/dl (0.2-1.3); Blood Urea Nitrogen 13 mg/dl (9-20); Carbon Dioxide 31 mmol/L (22.0-30.0); Creatinine Clearance Estimated 130 mL/min (50-200); Estimated Glomerular Filt Rate 106 ml/min (>60); GFR (African American) 128 ML/MIN (>60)
[2021-07-12 16:39] LABS: Albumin Level 4.4 g/dl (3.5-5.0); Albumin/Globulin Ratio 1.6 (1.1-1.8); Calcium 9.3 mg/dl (8.4-10.2); Globulin 2.8 g/dL (1.3-3.2); Glucose 102 mg/dl (74-100); Total Protein,Serum 7.2 g/dl (6.3-8.2)
[2021-07-12 18:43] VITALS: BP 125/82; PULSE 89; RESP 18; TEMP 36.4; O2SAT 98
== END 2021-07-12 18:46 | disposition home or self-care (01) ==
PROVIDERS: Emergency Provider Emergency Medicine; PCP Family Medicine
DX: U07.1 COVID-19 (principal); J10.1 Influenza due to other identified influenza virus with other respiratory manifestations; F41.9 Anxiety disorder, unspecified; G43.709 Chronic migraine without aura, not intractable, without status migrainosus; Z79.899 Other long term (current) drug therapy
CPT/HCPCS: 70450; 80053; 85025; 96365; 96375; 99283; C9803; U0003; U0005

== ENCOUNTER 2021-11-18 16:35 | Emergency (ER) | payer OTHER, SELFPAY ==
[2021-11-18 16:36] VITALS: BP 134/95; PULSE 87; RESP 14; TEMP 36.7; O2SAT 98; BMI 25.0
--- NOTE | 2021-11-18 16:39 | XR_ITS ---
PROCEDURE INFORMATION: Exam: XR Chest Exam date and time: 11/18/2021 4:44 PM Age: 41 years old Clinical indication: Cough TECHNIQUE: Imaging protocol: XR of the chest. Views: 1 view. COMPARISON: CR XR CHEST PORTABLE 02/08/2021 11:53 AM FINDINGS: Lungs: No lobar consolidation, pleural effusion or pulmonary edema. Pleural spaces: See Lungs finding. Heart/Mediastinum: Unremarkable. No cardiomegaly. Bones/joints: Unremarkable. IMPRESSION: No lobar consolidation, pleural effusion or pulmonary edema. Plain films are relatively insensitive for detecting any possible ground glass opacities.
[2021-11-18 16:49] VITALS: BMI 25.0
--- NOTE | 2021-11-18 16:50 | PC.NURSE ---
rad at [facility] for portable xray
[2021-11-18 17:18] LABS: Basophils # 0.2 K/mm3 (0-0.2); Basophils % 2.3 % (0.1-2.0); Eosinophils # 0.1 K/mm3 (0.0-0.4); Eosinophils % 0.6 % (0.1-12.0); Hematocrit 44.3 % (42.0-52.0); Hemoglobin 14.8 g/dL (14.1-18.0); Lymphocytes # 2.6 K/mm3 (0.7-4.5); Lymphocytes % 27.7 % (10-50); Mean Corpuscular HGB Conc 33.4 g/dL (31.8-35.4); Mean Corpuscular Hemoglobin 31.4 pg (27.0-31.2); Mean Corpuscular Volume 93.8 fl (80-94); Mean Platelet Volume 8.1 fl (7.4-10.4); Monocytes # 0.5 K/mm3 (0.1-1.0); Monocytes % 5.1 % (1.7-9.3); Neutrophils % 64.3 % (37.0-80.0); Platelet Count 286 K/mm3 (142-424); Red Blood Count 4.72 M/mm3 (4.60-6.20); Red Cell Distribution Width 13.3 % (11.5-17.5); White Blood Count 9.4 K/mm3 (4.8-10.8)
--- NOTE | 2021-11-18 17:18 | ECG_ITS ---
APPROVED REPORT Exam: Resting ECG HR:81 bpm ECG Measurements Heart Rate 81 AXES TN 156 P 37 QRSd 89 QRS -8 QT 351 T 1 QTc 388 Conclusion SINUS RHYTHM VOLTAGE CRITERIA FOR LVH [MEETS CRITERIA IN ONE OF: R(aVL), S(V1), R(V5), R(V5/V6)+S(V1)] ABNORMAL ECG UNCONFIRMED REPORT Electronically signed by : Micky Joseph MD 11/19/2021 21:10:32
[2021-11-18 17:29] LABS: Alanine Aminotransferase 28 U/L (12-78); Albumin Level 4.5 g/dl (3.5-5.0); Albumin/Globulin Ratio 1.6 (1.1-1.8); Alkaline Phosphatase 79 U/L (38-126); Anion Gap 11.8 mEq/L (5-15); Aspartate Amino Transferase 37 U/L (17-59); Bilirubin,Total 0.6 mg/dl (0.2-1.3); Blood Urea Nitrogen 16 mg/dl (9-20); Calcium 9.7 mg/dl (8.4-10.2); Carbon Dioxide 29 mmol/L (22.0-30.0); Chloride 100 mmol/L (98-107); Creatinine Clearance Estimated 122 mL/min (50-200); Estimated Glomerular Filt Rate 106 ml/min (>60); GFR (African American) 128 ML/MIN (>60); Globulin 2.8 g/dL (1.3-3.2); Glucose 93 mg/dl (74-100); Potassium 3.8 mmoL/L (3.5-5.1); Sodium 137 mmol/L (136-145); Total Protein,Serum 7.3 g/dl (6.3-8.2)
[2021-11-18 17:30] VITALS: BP 142/90; PULSE 79; O2SAT 99
[2021-11-18 17:49] LABS: Troponin I < 0.01 ng/ml (0.00-0.034)
--- NOTE | 2021-11-18 17:55 | HMH.EDGENADL ---
ED Disposition Clinical Impression: Heat exhaustion Qualifiers: Encounter type: initial encounter Qualified Code(s): T67.5XXA - Heat exhaustion, unspecified, initial encounter Disposition: Home, Self-Care Condition on Discharge: Good Instructions: DI for Heat Exhaustion and Heat Stroke Referrals: Beka Urrutia MD [Primary Care Provider] - - Critical Care Critical Care Time: No Attestation: On 11/18/21, the high probability of a clinically significant, sudden or life threatening deterioration of the following system(s) required my full and direct attention, intervention and personal management. The time I documented below is in addition to time spent performing reported procedures but includes the following listed in this critical care notation. Medical Decision Making - Medical Records Medical records reviewed: Yes: I reviewed the patient's medical records. - Satish Inquiry Pt receiving controlled substance: No Vital Signs: 11/18/21 16:36 11/18/21 17:30 11/18/21 18:00 Temperature 98.0 F Temperature Source Oral Pulse Rate 79 80 Pulse Rate [Right Radial] 87 Respiratory Rate 14 Blood Pressure 142/90 H 139/93 H Blood Pressure [Right Arm] 134/95 H Blood Pressure Mean 105 106 Blood Pressure Mean [Right Arm] 108 Blood Pressure Source [Right Arm] Automatic Cuff Blood Pressure Position [Right Arm] Sitting 02 Sat by Pulse Oximetry 98 99 98 Oxygen Delivery Method Room Air Room Air Room Air - Lab Data Lab Results 11/18/21 17:01: WBC 9.4, RBC 4.72, Hgb 14.8, Hct 44.3, MCV 93.8, MCH 31.4 H, MCHC 33.4, RDW 13.3, Plt Count 286, MPV 8.1, Neut % (Auto) 64.3, Lymph % (Auto) 27.7, [place] % (Auto) 5.1, Eos % (Auto) 0.6, Baso % (Auto) 2.3 H, Neut # (Auto) 6.0, Lymph # (Auto) 2.6, [place] # (Auto) 0.5, Eos # (Auto) 0.1, Baso # (Auto) 0.2 11/18/21 17:01: Sodium 137, Potassium 3.8, Chloride 100, Carbon Dioxide 29, Anion Gap 11.8, BUN 16, Creatinine 0.80, Estimated Creat Clear 122, Estimated GFR 106, Est GFR ( Amer) 128, Glucose 93, Calcium 9.7, Total Bilirubin 0.6, AST 37, ALT 28, Alkaline Phosphatase 79, Troponin I < 0.01, Total Protein 7.3, Albumin 4.5, Globulin 2.8, Albumin/Globulin Ratio 1.6 Result diagrams: 11/18/21 17:01 11/18/21 17:01 Orders (Tests/Meds): ED MEDICATIONS Generic Name Dose Route Start Last Admin Trade Name Freq PRN Reason Stop Dose Admin Sodium Chloride 1,000 mls @ 999 mls/hr 11/18/21 16:45 11/18/21 17:12 Sod Chlor 0.9% 1000ml Bag IV 11/18/21 17:45 999 mls/hr .Q1H1M ELSA Administration Sodium Chloride 10 ml 11/18/21 17:13 Sodium Chloride 0.9% 10ml Flush Syringe IV 12/18/21 17:12 NEEDED PRN Maintain IV Site Discontinued Medications Generic Name Dose Route Start Last Admin Trade Name Freq PRN Reason Stop Dose Admin Ondansetron HCl 4 mg 11/18/21 16:40 11/18/21 17:12 Ondansetron 4mg/2ml Vial IV 11/18/21 16:41 4 mg ONCE ONE Administration ORDERS Category Date Time Status Troponin I Q3H Lab 11/18/21 19:45 Ordered Troponin I Q3H Lab 11/18/21 22:45 Ordered - Radiology Data #1 Image(s): Chest Image Reviewed: Yes I reviewed the patient's radiology results, Yes I reviewed the patient's radiology image, Yes I have reviewed radiologist's interpretation Preliminary Findings: Normal/NAD - ECG Data Tracing #1 I reviewed this ECG and interpreted as documented below: ECG initial impression date: 11/18/21 ECG initial impression time: 17:18 ECG normal with no acute: arrhythmias, ischemia, conduction abnormalities, chamber hypertrophy Normal Sinus Rhythm: Yes - Reevaluation(s) Time: 18:40 Reevaluation #1: On reevaluation, the patient is feeling much better. Hemodynamically stable. Work-up is benign. Electrolytes normal. Patient will follow up with PCP in 48 hours. Given strict return precautions. Verbalized understanding. Medical Decision Narrative: 41-year-old male presented to the emergency
[2021-11-18 18:00] VITALS: BP 139/93; PULSE 80; O2SAT 98
[2021-11-18 18:51] VITALS: BP 125/84; PULSE 61; RESP 17; TEMP 36.6; O2SAT 99
== END 2021-11-18 18:52 | disposition home or self-care (01) ==
PROVIDERS: Emergency Provider Emergency Medicine; PCP Family Medicine
DX: T67.5XXA Heat exhaustion, unspecified, initial encounter (principal); R51.9 Headache, unspecified; I10 Essential (primary) hypertension; F41.9 Anxiety disorder, unspecified
CPT/HCPCS: 71045; 80053; 84484; 85025; 93005; 96360; 96375; J2405

== ENCOUNTER 2021-12-04 18:19 | Emergency (ER) | payer OTHER, SELFPAY ==
[2021-12-04 18:30] VITALS: BP 167/95; PULSE 94; RESP 18; TEMP 37.9; O2SAT 97; BMI 27.6
[2021-12-04 19:00] LABS: UTC Influenza A Antigen Negative (Negative); UTC Influenza B Antigen Negative (Negative)
--- NOTE | 2021-12-04 19:04 | HMH.EDUTC ---
[facility] [place] Impression: URI (upper respiratory infection) Qualifiers: URI type: unspecified URI Qualified Code(s): J06.9 - Acute upper respiratory infection, unspecified Disposition: Home, Self-Care Condition on Discharge: Good Instructions: Sore Throat, DI for Fever (Symptom) -- Adult, DI for Cough -- Adult Additional Instructions: *Monitor Temp, Over the counter Motrin or Tylenol as directed/as needed Tylenol every 4 hours and Motrin every 6 hours (as long as your family doctor has told you that you can take it) for fever or pain. and straight to ER if unable to lower temp less than 101.0 after medication given *Warm salt water gargles may help to soothe the throat *Throat Lozenges *Warm fluids like tea with honey may help to soothe the throat *Sleep elevated *Humidifier/Vaporizer Your throat swab was sent for culture. Those results are typically sent to your primary care. Be sure to follow up in 2-3 days with your family doctor/primary care physician if no improvement so they can review those result and treat if necessary. If you don?t have a primary care doctor, I recommend you get one but in the mean time, you will have to return to a walk in clinic Follow up IMMEDIATELY for new or worsening symptoms or no Noticeable improvement over the next 48-72 hours. 911 for difficulty breathing or swallowing You were tested for today for Upper Respiratory Panel with COVID19 your test result should be back in the next 24-48 hours, you results should be available on the [facility] My Health Portal Prescriptions: Benzonatate [Benzonatate 100mg cap] 100 mg PO Q8HP PRN #15 cap PRN Reason: Cough Transmission Status: Pending to [facility] Azithromycin [Z-Bk 250mg Tab] 250 mg PO DIRECTED #6 tab Transmission Status: Pending to [facility] Referrals: Lou Cope MD [Primary Care Provider] - As needed Forms: Work/School Release Time of Disposition: 19:25 Medical Decision Making - Satish Inquiry Pt receiving controlled substance: No Satish was queried for this patient: No Vital Signs: 12/04/21 18:30 Temperature 100.2 F H Temperature Source Oral Pulse Rate [Right Brachial] 94 H Respiratory Rate 18 Blood Pressure [Right Arm] 167/95 H Blood Pressure Mean [Right Arm] 119 Blood Pressure Source [Right Arm] Automatic Cuff Blood Pressure Position [Right Arm] Sitting 02 Sat by Pulse Oximetry 97 Oxygen Delivery Method Room Air - Lab Data Lab results reviewed: Yes: I reviewed the patient's lab results. Lab Results 12/04/21 18:45: Group A Strep Rapid Negative 12/04/21 18:48: Influenza Type A Ag Negative, Influenza Type B Ag Negative Orders (Tests/Meds): ORDERS Category Date Time Status Strep Screen Confirmation Stat Micro 12/04/21 18:45 [place] [facility] [place] - General Stated complaint: Fever,cough,runny nose Time Seen by Provider: 12/04/21 19:04 Mode of Arrival: Ambulatory Source of Information: Patient Limitations: No Limitations Description of Symptoms (Recalled from Triage Doc. by RN): PATIENT C/O FEVER, COUGH, RUNNY NOSE AND SORE THROAT X 2 DAYS HEENT Symptoms (Recalled from RN notes): Yes Resp Symptoms (Recalled from RN notes): No Skin Symptoms (Recalled from RN notes): No MS Symptoms (Recalled from RN notes): No Functional Status (Recalled from RN notes): WNL - History of Present Illness Provider Complaint: Patient states that he has not felt well for a couple of days States that he has been having sore throat, fever, chills and body aches States that today he was feeling worse so he came in - Related Data Home Medications Medication Instructions Recorded Confirmed clonazePAM [Clonazepam] 0.5 mg PO BID 11/18/21 12/04/21 Sertraline HCl [Zoloft] 50 mg PO DAILY 12/04/21 12/04/21 Previous Rx's Medication Instructions Recorded Azithromycin [Z-Bk 250mg Tab] 250 mg PO DIRECTED #6 tab 12/04/21 Benzonatate [Benzonatate 100mg 100 mg PO Q8HP PRN #1
[2021-12-04 19:06] LABS: Strep Scrn Group A (Rapid) Negative (Negative)
[2021-12-04 19:27] VITALS: BP 167/95; PULSE 94; RESP 18; TEMP 37.9; O2SAT 97
[2021-12-04 19:37] LABS: Adenovirus,PCR Not Detected (NotDetected); Bordetella Pertussis Not Detected (NotDetected); Chlamydophila Pneumoniae, PCR Not Detected (NotDetected); Coronavirus 229E Not Detected (NotDetected); Coronavirus NL63 Not Detected (NotDetected); Coronavirus OC43 Not Detected (NotDetected); Coronovirus HKU1,PCR Not Detected (NotDetected); Human Metapneumovirus Not Detected (NotDetected); Influenza A, PCR Not Detected (NotDetected); Influenza AH1, 2009 Not Detected (NotDetected); Influenza AH1, PCR Not Detected (NotDetected); Influenza AH3,PCR Not Detected (NotDetected); Influenza B, PCR Not Detected (NotDetected); Mycoplasma Pneumoniae, PCR Not Detected (NotDetected); Parainfluenza 1, PCR Not Detected (NotDetected); Parainfluenza 2, PCR Not Detected (NotDetected); Parainfluenza 3, PCR Not Detected (NotDetected); Parainfluenza 4, PCR Not Detected (NotDetected); Respiratory Syncytial Virus Not Detected (NotDetected); Rhinovirus/Enterovirus Not Detected (NotDetected)
== END 2021-12-04 19:34 | disposition home or self-care (01) ==
PROVIDERS: Emergency Provider Nurse Practitioner; PCP Family Medicine
DX: J06.9 Acute upper respiratory infection, unspecified (principal)
CPT/HCPCS: 87430; 87486; 87581; 87632; 87798; 87804; 99212; C9803; G0463; U0003; U0005

== ENCOUNTER → 2022-02-02 09:29 | Outpatient (CLI) | payer OTHER, SELFPAY | PROVIDERS: PCP Family Medicine; Visit Provider Nurse Practitioner | DX: R00.1 Bradycardia, unspecified (principal); I95.9 Hypotension, unspecified | CPT/HCPCS: 93270 ==

== ENCOUNTER → 2022-02-09 09:56 | Outpatient (CLI) | payer OTHER, SELFPAY ==
--- NOTE | 2022-02-09 09:57 | CA_ITS ---
APPROVED REPORT Exam: Exercise Treadmill Technologist: Chani Rogers, Ht: 5 ft 7 in Wt: 171 lbs BSA: 1.89 m2 HR: 67 bpm BP: 115/78 mmHg Rhythm: NSR, normal Medical History Medical History: HTN Medications: Pantoprazole,,,,, ClonAZapam,,,,, Vilazodone,,,,, Cardiac Risk Factors: HTN, FHX of CAD Stress Test Details Test: Sam HR Resting HR: 78 bpm Max Heart Rate (APMHR): 177.031357 bpm Max HR Achieved: 159 bpm Target HR (85% APMHR): 150.467359 bpm % of APMHR: 89.83 Recovery HR: 120 bpm BP Resting BP: 109/82 mmHg Max BP: 164/76 mmHg Recovery BP: 136.0/88.0 mmHg ECG Resting ECG: NSR, normal Clinical Exercise duration: 09:59 min Highest Stage Achieved: Exercise capacity: 12.8 METs Stress ECG Conclusion During sam protocol pt exercised total of 9:59 minutes into stage 4. No CP noted. No arrhythmias noted. Allowing for motion artifact, the ST response to exercise is within normal. Normal GXT, no imaging. Test Summary RECOVERY 05:18 0.0 0.0 87 . 121/ 86 . . REST . . . . . . . Standing REST 02:46 0.0 0.0 78 . 109/ 82 . . Stage 1 01:00 10.0 1.7 97 . . . . Stage 1 02:00 10.0 1.7 98 . . . . Stage 1 03:00 10.0 1.7 100 . 138/ 70 . . Stage 2 01:00 12.0 2.5 107 . . . . Stage 2 02:00 12.0 2.5 109 . . . . Stage 2 03:00 12.0 2.5 115 . 150/ 72 . . Stage 3 01:00 14.0 3.4 123 . . . . Stage 3 02:00 14.0 3.4 130 . . . . Stage 3 03:00 14.0 3.4 134 . 164/ 76 . . Stage 4 00:59 16.0 4.2 159 . . . Stop exercise at 09:59 RECOVERY 01:00 0.0 0.0 121 . . . . RECOVERY 02:00 0.0 0.0 103 . 136/ 88 . . RECOVERY 03:00 0.0 0.0 87 . 143/ 87 . . RECOVERY 04:00 0.0 0.0 95 . 126/ 83 . . RECOVERY 05:00 0.0 0.0 89 . 121/ 86 . . RECOVERY 05:18 0.0 0.0 87 . 121/ 86 . . Electronically signed by : John Ash MD 02/10/2022 06:50:32
--- NOTE | 2022-02-09 09:57 | CA_ITS ---
APPROVED REPORT EXAM: Comprehensive 2D, Doppler, and color-flow Echocardiogram [employer] Worker: Cassandra Ramirez CRT Ht: 5 ft 7 in Wt: 171lbs BSA: 1.89 BP: 120/78 mmHg Indications: Chest Pain, Shortness of Breath, Hypertension/HDD, bradycardia 2D Dimensions LVOT 2.08 cm (M/F) 1.5-2.5 LA Volume 49.10 mL LA Volume Index 26.00 mL/m2 (M/F) 16-34 M-Mode Dimensions RVDd 2.73 cm (0.9-2.6) LA Diam 3.84 cm (1.9-4.0) LVDd 5.45 cm (3.5-5.7) Ao Diam 4.07 cm (2.0-3.7) LVDs 3.09 cm (3.5-5.7) IVSd 1.40 cm (0.6-1.1) PWd 0.68 cm (0.6-1.1) EF (Teich) 74.00% FS 43.30% EDV (Teich) 144.40 mL TAPSE 1.72 (<1.7) ESV (Teich) 37.60 mL LV Diastology E Decel Time 323.00 (160-240 msec) E/A Ratio 0.95 MED E' 6.50 (< 7 cm/sec) MED A' 7.40 cm/s E'/MED E' Ratio 9.23 (>14) LAT E' 10.10 (<10 cm/sec) LAT A' 7.60 cm/s E/LAT E' Ratio 5.94 (>14) Aortic Valve AO Peak GR. 4.70 mmHg Mitral Valve MV A Velocity 63.00 (40-130 cm/s) E/A Ratio 0.95 MV Decel. Time 323.00 (160-240 ms) Pulmonary Valve PV Peak Velocity 178.00 (50-150 cm/s) Tricuspid Valve TR P. Velocity 317.00 cm/s RAP Estimate 10.00 mmHg RVSP 50.30 mmHg Left Ventricle Left atrium is qualitatively mildly enlarged, left ventricle is normal size, left ventricle wall thickness is upper limit of the normal there is preserved left ventricular systolic function, estimated ejection fraction 55% with no regional wall motion abnormality, diastolic parameters are inconclusive. Right Ventricle Right atrium and right ventricle are normal size and contractility. Aortic Valve Aortic valve is grossly normal there is no aortic stenosis or aortic insufficiency. Mitral Valve Mitral valve grossly normal, there is trace mitral regurgitation. Tricuspid Valve Tricuspid valve grossly normal, there is trace tricuspid regurgitation, tricuspid regurgitation jet velocity is inadequate for calculation of the right ventricular systolic pressure. Pulmonic Valve Pulmonic valve is poorly visualized. Great Vessels Aortic root is normal size. Inferior vena cava is normal size with normal inspiratory collapse. Pericardium No significant pericardial effusion noted. Conclusion 1. Normal left ventricular size preserved left ventricular systolic function, estimated ejection fraction 55% with no regional wall motion abnormality, diastolic parameters are inconclusive. 2. Trace mitral and tricuspid regurgitation. 3. No significant pericardial effusion. 4. Inferior vena cava normal size with normal inspiratory collapse. Electronically signed by : John Ash MD 02/10/2022 05:51:51
== END ==
PROVIDERS: PCP Family Medicine; Visit Provider Nurse Practitioner
DX: R06.00 Dyspnea, unspecified (principal); R07.9 Chest pain, unspecified; R00.1 Bradycardia, unspecified; I95.9 Hypotension, unspecified
CPT/HCPCS: 93017; 93306

== ENCOUNTER → 2022-05-27 10:57 | Outpatient (CLI) | payer OTHER, SELFPAY ==
--- NOTE | 2022-05-27 11:02 | CT_ITS ---
FINAL REPORT TECHNIQUE: Axial CT images were performed from the lung bases through the pubic symphysis. Coronal reformats were submitted and reviewed. This study was performed with techniques to keep radiation doses as low as reasonably achievable (ALARA). Individualized dose reduction techniques using automated exposure control or adjustment of mA and/or kV according to the patient's size were employed. CLINICAL HISTORY: HEMATURIA,LLQ PAIN, left flank pain FINDINGS: Abdomen: The lung bases are clear. The gallbladder is present. The liver, spleen and pancreas are unremarkable. There are no adrenal masses. There are multiple bilateral nonobstructing renal stones. Renal stones measure up to 7 mm. There is moderate left hydronephrosis secondary to a 5 mm obstructing distal left ureteral stone. Pelvis: The appendix is unremarkable. There are no distal ureteral stones. The urinary bladder is unremarkable. There are bilateral L5 pars defects. IMPRESSION: Obstructing 5 mm distal left ureteral stone. Bilateral nonobstructing renal stones. Reviewed, Interpreted and Dictated by Ismael Coleman MD Transcribed by Tacos Flores Authenticated and [facility]
== END ==
PROVIDERS: PCP Physician Assistant; Visit Provider Physician Assistant
DX: R10.32 Left lower quadrant pain (principal); R31.9 Hematuria, unspecified
CPT/HCPCS: 74176

== ENCOUNTER → 2022-08-09 11:18 | Outpatient (CLI) | payer OTHER, SELFPAY ==
--- NOTE | 2022-08-09 11:21 | XR_ITS ---
FINAL REPORT CLINICAL HISTORY: PARS DEFECT OF L SPINE FINDINGS: 5 views of the lumbar spine were obtained. There is no acute bony abnormality. There are L5 pars defects with mild anterolisthesis of L5 on S1. Mild degenerative changes are seen at multiple levels. Is bilateral renal stones are seen. IMPRESSION: No acute bony abnormality. L5 pars defects with mild anterolisthesis of L5 on S1. Bilateral renal stones. Reviewed, Interpreted and Dictated by Dinesh Chapman III, MD Transcribed by Pratibha Roberson Authenticated and [facility]
== END ==
LOC: RAD 11:19
PROVIDERS: PCP Family Medicine; Visit Provider Nurse Practitioner Family
DX: M43.06 Spondylolysis, lumbar region (principal)
CPT/HCPCS: 72110

== ENCOUNTER → 2022-08-11 09:44 | Outpatient (CLI) | payer OTHER, SELFPAY ==
--- NOTE | 2022-08-11 09:48 | MR_ITS ---
FINAL REPORT CLINICAL HISTORY: lower back pain, pain in bilateral legs when back pain is worse, pt stated he has a crack in his L5 no known injury COMPARISON: none FINDINGS: Multiplanar MR imaging of the lumbar spine was performed without and with contrast. On the sagittal T2-weighted images, disc degeneration is seen at multiple levels. The vertebral alignment is normal. There is no evidence of fracture. The conus is seen at approximately the L1 level and has an unremarkable appearance. L1-2: An annular bulge is present. No significant canal stenosis or neuroforaminal narrowing is seen. L2-3: An annular bulge is present. No significant canal stenosis or neuroforaminal narrowing is seen. L3-4: An annular bulge is present. Mild bilateral neural foraminal narrowing. No significant canal stenosis. L4-5: An annular bulge is present. Mild right and moderate left neural foraminal narrowing. No significant canal stenosis. L5-S1: Annular disc bulge and facet arthropathy. There are bilateral L5 pars defects. There is grade 1 anterolisthesis of L5 on S1. No significant canal stenosis or neuroforaminal narrowing is seen. No abnormal contrast enhancement is identified. IMPRESSION: Multilevel annular bulges. L5 pars defects with grade 1 anterolisthesis of L5 on S1. Reviewed, Interpreted and Dictated by Dinesh Chapman III, MD Transcribed by Liz Mccracken Authenticated and . [facility]
== END ==
LOC: RAD 09:44
PROVIDERS: PCP Family Medicine; Visit Provider Nurse Practitioner Family
DX: M43.06 Spondylolysis, lumbar region (principal); M54.9 Dorsalgia, unspecified; M54.50 Low back pain, unspecified
CPT/HCPCS: 72158; 76376; A9576

== ENCOUNTER → 2022-12-16 12:25 | Outpatient (CLI) | payer OTHER, SELFPAY | LOC: RT 12:26 | PROVIDERS: PCP Family Medicine; Visit Provider Nurse Practitioner | DX: R00.1 Bradycardia, unspecified (principal) | CPT/HCPCS: 93225 ==

== ENCOUNTER → 2023-01-12 13:57 | Outpatient (CLI) | payer OTHER, SELFPAY | PROVIDERS: PCP Family Medicine; Visit Provider Physician Assistant | DX: R06.83 Snoring (principal); R00.1 Bradycardia, unspecified; R40.0 Somnolence; G47.33 Obstructive sleep apnea (adult) (pediatric) | CPT/HCPCS: 95806 ==

== ENCOUNTER → 2023-01-18 11:21 | Outpatient (CLI) | payer OTHER, SELFPAY ==
[2023-01-18 17:29] LABS: Amphetamine/Metha Screen,Urine Negative ng/ml (<1000); Barbiturates Screen,Urine Negative ng/ml (<200)
[2023-01-18 17:30] LABS: Benzodiazepines Screen,Urine Negative ng/ml (<200)
[2023-01-18 17:31] LABS: Cannabinoid Screen,Urine Negative ng/ml (<50); Cocaine Screen,Urine Negative ng/ml (<300)
[2023-01-18 17:32] LABS: Methadone Screen,Urine Negative ng/ml (<300); Opiate Screen,Urine Negative ng/ml (<300)
[2023-01-18 17:34] LABS: Phencyclidine Screen,Urine Negative ng/ml (<25)
== END ==
PROVIDERS: PCP Family Medicine; Visit Provider Nurse Practitioner Psychiatric/Mental Health
DX: Z02.83 Encounter for blood-alcohol and blood-drug test (principal)
CPT/HCPCS: 80305

== ENCOUNTER 2023-01-27 08:30 | Outpatient (RCR) | payer OTHER, SELFPAY ==
--- NOTE | 2023-01-17 12:05 | HMH.PTOPEV ---
PT Outpatient Evaluation Rehab PT Outpatient Evaluation Start: 01/17/23 08:03 Freq: Status: Active Protocol: Document 01/17/23 11:55 JAIR (Rec: 01/17/23 12:05 AJIR [id number]) E-signed By Vicente Figueroa, PT Outpatient Therapy Subjective History Subjective History This is the initial PT eval for Giovanni Muniz, 42 yowm who presents with LBP for several years, worse x 1-2 mos . Intermittent radiation to the knees distally B. He reports pain is worse on the L side then the right most of the time. He also reports no c /o weakness or numbness/ tingling. He reports no injury to initiate his symptoms, they just tend to worsen intermittently. 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 MRIO from 08/11 shows L1-L5 disc bulges, and L5 pars defect with L5 on S1 anteriorlisthesis. Chief Complaint Pain Symptom Type Ache,Sharp Symptoms Relieved By Rest/Positioning Symptoms Aggravated By Physical Activity,Lifting Prior Functional Limitations None Current Functional Limitations Lifting,Standing,Recreation Activity Level of pain today (0-10) 1 Pain scale - at its best (0-10) 1 Pain scale - at its worst (0-10) 10 Lumbopelvic Eval Posture Thoracic Spine Posture Standing Position Neutral Lumbar Spine Posture Standing Position Neutral Range of Motion Lumbar Spine Active Flexion Range of 0-65 Motion (degrees) Lumbar Spine Active Extension Range of 0-20 Motion (degrees) Left Lumbar Spine Lateral Flexion Active 0-20 Range of Motion (degrees) Right Lumbar Spine Lateral Flexion 0-20 Active Range of Motion (degrees) Manual Muscle Test Bilateral Knee Extension Strength Grade 5 Normal Knee Flexion Strength Grade 5 Normal Hip Flexion Strength Grade 5 Normal Hip Abduction Strength Grade 5 Normal Hip Adduction Strength Grade 5 Normal Ankle Dorsiflexion Strength Grade 5 Normal Gastronemius/Soleus Strength Grade 5 Normal Special Tests Forward Bending Test- Standing Positive Left,Positive Right Hip Scouring (Quadrant) Test Negative Left,Negative Right Hip Ronny (FLORINDA) Test Negative Left,Negative Right Sciatic Nerve Tension Test Negati
== END 2023-01-27 08:35 | disposition home or self-care (01) ==
LOC: PT 08:30
PROVIDERS: Visit Provider Physician Assistant
DX: M43.06 Spondylolysis, lumbar region (principal)
CPT/HCPCS: 97010; 97014; 97110; 97163; 97530; G0283

== ENCOUNTER 2024-04-17 06:50 | Emergency (ER) | payer OTHER, SELFPAY ==
[2024-04-17] VITALS (8 sets, daily range): BP systolic 134–153; BP diastolic 91–105; PULSE 71–86; RESP 9–18; TEMP 36.8; O2SAT 94–99; BMI 27.3
--- NOTE | 2024-04-17 07:00 | ECG_ITS ---
APPROVED REPORT Exam: Resting ECG HR:69 bpm ECG Measurements Heart Rate 69 AXES MI 159 P 36 QRSd 89 QRS -4 QT 370 T -7 QTc 389 Conclusion SINUS RHYTHM MODERATE VOLTAGE CRITERIA FOR LVH, CONSIDER NORMAL VARIANT [MEETS CRITERIA IN ONE OF: R(aVL), S(V1), R(V5), R(V5/V6)+S(V1)] BORDERLINE ECG Electronically signed by : HITESH ROMERO, 04/18/2024 23:02:09
--- NOTE | 2024-04-17 07:00 | ED_ITS ---
Discharge Plan Disposition Patient Disposition: Home, Self-Care Condition: Good Prescriptions Prescriptions: No Action clonazepam 0.5 mg tablet 0.25 mg PO BID Qty: 30 5RF vilazodone [Viibryd] 20 mg tablet 20 mg PO DAILY 90 Days Qty: 90 1RF Rx Instructions: must administer with a meal/food pantoprazole 40 mg tablet,delayed release (DR/EC) 40 mg PO DAILY Patient Comments: TAKE 1 TABLET BY MOUTH ONCE DAILY Referrals Follow up/Referrals: Lou Cope MD [Primary Care Provider] - See instructions Activity Restrictions/Add. Instructions Additional Instructions/Restrictions: As we discussed, your first heart enzyme levels undetectable, chest x-ray showed no evidence of pneumonia and the rest of your labs were within normal limits. I recommend you take your acid reducing medication 30 to 60 minutes before meal and follow-up with your primary care doctor in regard to your blood pressure that you mentioned has been elevated at home. Please return with any new or worsening symptoms. Clinical Impressions Clinical Impression: Acute chest pain Print Language Print Language: Arabic Discharge ED Provider: Didier Daniels General Adult HPI General Chief complaint: Chest Pain Stated complaint: chest tightness, pain back of neck, cough Time Seen by Provider: 04/17/24 06:59 History of Present Illness HPI narrative: Patient is a 43-year-old male with history of COVID, panic disorder, presents today with 24 hours of burning sensation in chest, gradual in onset starting yesterday evening, constant, stable in course, with associated cough. He reports he has had associated sick contacts with mononucleosis and strep. He reports he has had similar symptoms before attributable to GERD and anxiety attacks however it has not been as persistent as this episode. Previous therapies include home antiacid with mild transient improvement of symptoms. He reports he was recently diagnosed with a kidney stone and took 1 day of tamsulosin however discontinued this due to adverse reaction. This was approximately 48 hours ago. Pain is nonpleuritic nonexertional, radiates occasionally to the back of his neck. No syncope or presyncope. No palpitations. No abdominal pain. Please note that above description of symptoms, in this electronic medical record under categorization of recalled from ER triage doctor by RN are reflective of an initial nursing assessment, however, is not reflective of my full history and physical exam that was personally taken and clarified. Consequentially, this preceding description of symptoms, which may include the patient's categorized chief complaint in the EMR, do not reflect my personal clinical impression, and the ultimate description of history of present illness and patient stated complaints should be deferred to this section of the note. Unless stated otherwise or congruent with this section of the note, additional signs, symptoms, or incongruence should be interpreted as inaccurate with my clinical impression. Related Data Home Medications ?Medication ?Instructions ?Recorded ?Confirmed pantoprazole 40 mg tablet,delayed 40 mg PO DAILY 02/02/22 12/23/23 release Previous Rx's ?Medication ?Instructions ?Recorded clonazepam 0.5 mg tablet 0.25 mg (1/2 x 0.5 mg) PO BID 12/23/23 Anxiety #30 tabs vilazodone 20 mg tablet (Viibryd) 20 mg PO DAILY 90 days #90 tabs 12/23/23 Allergies Allergy/AdvReac Type Severity Reaction Status Date / Time No Known Allergies Allergy Verified 12/23/23 11:09 [facility] Disclaimer: The information contained in this section may have been updated after the patient was seen, as this information can be updated by other users. Medical History Bradycardia Daytime somnolence Generalized anxiety disorder Panic disorder Snoring Family History Other Diabetes Social History Smoking Status: Never smoker alcohol intake: current alcohol intake frequency: a few times a month counseling given: No substance use type: denies use current occupational status: employed and other Travel in the last 8 weeks: None household members: spouse and family housing: house marital status: number of children: 3 current occupation: maintenance caffeine: Yes Other Medical History Have you received the Flu Vaccine for this season: No Have you received the Pneumonia Vaccine: No ROS Obtained: Yes other As per HPI Physical Exam General General appearance: alert and in no apparent distress Head Head exam: atraumatic and normocephalic Eye Eye exam: Present normal appearance Neck Neck exam: Present normal inspection Chest Chest inspection: Present normal inspection and symmetric chest wall rise Respiratory Respiratory exam: Present normal lung sounds bilaterally; Absent respiratory distress Cardiovascular Cardiovascular exam: Present regular rate and normal rhythm Abdominal Exam Abdominal exam: Present soft Neurological Exam Neurological exam: Present alert and oriented X3 Psychiatric Psychiatric exam: Present normal affect and normal mood Skin Skin exam: Present warm and dry Medical Decision Making Medical Records Medical records reviewed: Yes I reviewed the patient's medical records. Screening: Per USPSTF and CDC recommendations, given the prevalence of disease in our region, it is our hospital?s policy to screen for HIV and viral Hepatitis for all patients aged 18 and over and those with ongoing risk factors. Satish Inquiry Pt receiving controlled substance: No Vital Signs: 04/17/24 06:58 04/17/24 07:00 04/17/24 07:06 Temperature 98.3 F Temperature Source Oral Pulse Rate 72 73 Pulse Rate [Left Radial] 73 Respiratory Rate 18 13 Blood Pressure 142/96 H Blood Pressure [Right Arm] 145/99 H Blood Pressure Mean 111 Blood Pressure Mean [Right Arm] 114 Blood Pressure Source Blood Pressure Source [Right Arm] Automatic Cuff Blood Pressure Position 02 Sat by Pulse Oximetry 96 96 Oxygen Delivery Method Room Air 04/17/24 07:30 04/17/24 08:00 04/17/24 08:30 Temperature Temperature Source Pulse Rate 72 71 76 Pulse Rate [Left Radial] Respiratory Rate 9 L 14 12 Blood Pressure 152/103 H 150/105 H 134/91 H Blood Pressure [Right Arm] Blood Pressure Mean 119 123 105 Blood Pressure Mean [Right Arm] Blood Pressure Source Blood Pressure Source [Right Arm] Blood Pressure Position 02 Sat by Pulse Oximetry 99 94 L 97 Oxygen Delivery Method 04/17/24 09:00 04/17/24 09:24 Temperature 98.3 F Temperature Source Oral Pulse Rate 86 81 Pulse Rate [Left Radial] Respiratory Rate 11 L 18 Blood Pressure 153/98 H 153/98 H Blood Pressure [Right Arm] Blood Pressure Mean Blood Pressure Mean [Right Arm] Blood Pressure Source Automatic Cuff Blood Pressure Source [Right Arm] Blood Pressure Position Sitting 02 Sat by Pulse Oximetry 94 L Oxygen Delivery Method Room Air Room Air Lab Data Lab Results 04/17/24 07:03: WBC 7.2, RBC 4.96, Hgb 15.3, Hct 44.9, MCV 90.5, MCH 30.9, MCHC 34.1, RDW 13.2, Plt Count 272, MPV 8.5, Neut % (Auto) 58.1, Lymph % (Auto) 31.9, Hancock % (Auto) 7.9, Eos % (Auto) 1.2, Baso % (Auto) 1.0, Neut # (Auto) 4.2, Lymph # (Auto) 2.3, Hancock # (Auto) 0.6, Eos # (Auto) 0.1, Baso # (Auto) 0.1, Sodium 141, Potassium 3.9, Chloride 102, Carbon Dioxide 30, Anion Gap 12.9, BUN 14, Creatinine 0.90, Estimated Creat Clear 116, Estimated GFR 91, Est GFR ( Amer) 110, Glucose 109 H, Calcium 9.3, Total Bilirubin 0.9, AST 42, ALT 43, Alkaline Phosphatase 66, Troponin I < 0.01, Total Protein 7.8, Albumin 4.6, Globulin 3.2, Albumin/Globulin Ratio 1.4, Lipase 47, Monoscreen Negative, HIV 1&2 Antibody Rapid Nonreactive 04/17/24 07:37: SARS-CoV-2 (PCR) Not detected, Influenza A Untype (PCR) Not detected, Influenza Type B (PCR) Not detected 04/17/24 07:03 04/17/24 07:03 Orders (Tests/Meds): ED MEDICATIONS Discontinued Medications Generic Name Dose Route Start Last Admin Trade Name Freq PRN Reason Stop Dose Admin Belladonna Alkaloids 60 ml 04/17/24 07:16 04/17/24 07:35 Belladonna Alkaloids 60 Ml Ml PO 04/17/24 07:17 60 ml ONCE ONE Administration ORDERS Category Date Time Status XR chest 2V Stat Exams 04/17/24 07:16 Completed CBC w/Auto Diff [Complete Blood Count Auto Diff] Stat Lab 04/17/24 07:03 Completed CMP [Comprehensive Metabolic Panel] Stat Lab 04/17/24 07:03 Completed HIV (1&2) Antibody Rapid Stat Lab 04/17/24 07:03 Completed Hep C Ab with Reflex to RNA Stat Lab 04/17/24 07:03 Received Lipase Stat Lab 04/17/24 07:03 Completed Monoscreen (Rapid) Stat Lab 04/17/24 07:03 Completed Rapid PCR Covid and Flu A/B Stat Lab 04/17/24 07:37 Completed Troponin I Q3H Lab 04/17/24 07:03 Completed HEART Score History (anamnesis): Slightly suspicious ECG: Non-specific disturbance Age: 45-65 years Risk factors: 1-2 risk factors Troponin: </= normal limit HEART Score: 3 Medical Decision Narrative: Patient with history and exam per above presenting for evaluation of chest pain Diagnoses considered include ACS, panic attack, costochondritis, there is insufficient evidence at this time to warrant further workup for dissection or pulmonary embolism beyond history and physical exam ED workup and treatment included: ED MEDICATIONS Discontinued Medications Generic Name Dose Route Start Last Admin Trade Name Freq PRN Reason Stop Dose Admin Belladonna Alkaloids 60 ml 04/17/24 07:16 04/17/24 07:35 Belladonna Alkaloids 60 Ml Ml PO 04/17/24 07:17 60 ml ONCE ONE Administration ORDERS Category Date Time Status XR chest 2V Stat Exams 04/17/24 07:16 Completed CBC w/Auto Diff [Complete Blood Count Auto Diff] Stat Lab 04/17/24 07:03 Completed CMP [Comprehensive Metabolic Panel] Stat Lab 04/17/24 07:03 Completed HIV (1&2) Antibody Rapid Stat Lab 04/17/24 07:03 Completed Hep C Ab with Reflex to RNA Stat Lab 04/17/24 07:03 Received Lipase Stat Lab 04/17/24 07:03 Completed Monoscreen (Rapid) Stat Lab 04/17/24 07:03 Completed Rapid PCR Covid and Flu A/B Stat Lab 04/17/24 07:37 Completed Troponin I Q3H Lab 04/17/24 07:03 Completed Labs were independently interpreted by me, significant for no acute findings Imaging was independently visualized and interpreted by me, significant for no acute findings Please refer to radiology report for full details. Patient reports improvement of symptoms upon repeat evaluation. After shared decision making including risks he declines second troponin. He will return with new or worsening symptoms. Critical Care Critical Care Time Critical Care Time: No
--- NOTE | 2024-04-17 07:16 | XR_ITS ---
FINAL REPORT CLINICAL HISTORY: chest pain, cough, shortness of breath COMPARISON: 04/11/2024 FINDINGS: Two views of the chest were obtained. The heart size and pulmonary vascularity are within normal limits. The mediastinum is normal. There is linear atelectasis noted of the left lung base. There is no pneumothorax. The bony thorax is intact. IMPRESSION: Linear atelectasis left lung base. Reviewed, Interpreted and Dictated by Dinesh Chapman III, MD Transcribed by Dimple Oneal Authenticated and [facility]
--- NOTE | 2024-04-17 07:25 | PC.NURSE ---
pt to xr
[2024-04-17 07:26] LABS: Albumin Level 4.6 g/dl (3.5-5.0); Basophils # 0.1 K/mm3 (0-0.2); Eosinophils # 0.1 K/mm3 (0.0-0.4); Eosinophils % 1.2 % (0.1-12.0); Hematocrit 44.9 % (42.0-52.0); Hemoglobin 15.3 g/dL (14.1-18.0); Lymphocytes # 2.3 K/mm3 (0.7-4.5); Lymphocytes % 31.9 % (10-50); Mean Corpuscular HGB Conc 34.1 g/dL (31.8-35.4); Mean Corpuscular Hemoglobin 30.9 pg (27.0-31.2); Mean Corpuscular Volume 90.5 fl (80-94); Mean Platelet Volume 8.5 fl (7.4-10.4); Monocytes # 0.6 K/mm3 (0.1-1.0); Monocytes % 7.9 % (1.7-9.3); Neutrophils # 4.2 K/mm3 (1.8-7.8); Neutrophils % 58.1 % (37.0-80.0); Platelet Count 272 K/mm3 (142-424); Red Blood Count 4.96 M/mm3 (4.60-6.20); Red Cell Distribution Width 13.2 % (11.5-17.5); White Blood Count 7.2 K/mm3 (4.8-10.8)
[2024-04-17 07:27] LABS: Chloride 102 mmol/L (98-107); Potassium 3.9 mmoL/L (3.5-5.1); Sodium 141 mmol/L (136-145)
[2024-04-17 07:29] LABS: Alanine Aminotransferase 43 U/L (12-78); Alkaline Phosphatase 66 U/L (38-126); Anion Gap 12.9 mEq/L (5-15); Aspartate Amino Transferase 42 U/L (17-59); Bilirubin,Total 0.9 mg/dl (0.2-1.3); Blood Urea Nitrogen 14 mg/dl (9-20); Carbon Dioxide 30 mmol/L (22.0-30.0); Creatinine Clearance Estimated 116 mL/min (50-200); Estimated Glomerular Filt Rate 91 ml/min (>60); GFR (African American) 110 ML/MIN (>60)
[2024-04-17 07:30] LABS: Albumin/Globulin Ratio 1.4 (1.1-1.8); Calcium 9.3 mg/dl (8.4-10.2); Globulin 3.2 g/dL (1.3-3.2); Glucose 109 mg/dl (74-100); Lipase 47 U/L (23-300); Total Protein,Serum 7.8 g/dl (6.3-8.2)
--- NOTE | 2024-04-17 07:33 | PC.NURSE ---
pt returned to room from xray
[2024-04-17] MEDS: BELLADONNA ALKALOIDS 60 ML ML PO (07:35)
[2024-04-17 07:40] LABS: Monoscreen (Rapid) Negative (Negative)
[2024-04-17 07:40] LABS: Coronavirus 19, PCR Not Detected (NotDetected); Influenza A, PCR Not Detected (NotDetected); Influenza B, PCR Not Detected (NotDetected)
[2024-04-17 07:42] LABS: Troponin I < 0.01 ng/ml (0.00-0.034)
--- NOTE | 2024-04-17 08:06 | PC.NURSE ---
pt c/o dizziness, dr xavier notified and is at bedside
--- NOTE | 2024-04-17 09:12 | PC.NURSE ---
Dr. Daniels at BS to update pt on results and POC
[2024-04-17 14:52] LABS: HIV (1&2) Antibody Rapid NONREACTIVE (NONREACTIVE)
[2024-04-18 10:14] LABS: HCV Ab Non Reactive (Non Reactive)
== END 2024-04-17 09:24 | disposition home or self-care (01) ==
PROVIDERS: Emergency Provider Emergency Medicine; PCP Family Medicine
DX: R07.9 Chest pain, unspecified (principal); R05.9 Cough, unspecified; Z20.828 Contact with and (suspected) exposure to other viral communicable diseases
CPT/HCPCS: 71046; 80053; 83690; 84484; 85025; 86318; 86803; 87389; 87636; 93005; 99284